=== PATIENT | female | born 1990 | race Asian ===

== ENCOUNTER 2019-05-13 02:44 | Inpatient (IN) ==
[2019-05-13] MEDS ORDERED: OXYTOCIN 30 UNITS/500 ML BAG IV PRN ×3 (05:22→20:20)
--- NOTE | 2019-05-13 05:22 | History & Physical Report ---
Date of Service May 13, 2019 Assessment & Plan (1) Term : 28yo G1 at 40.1 weeks GA. PROM 1. Fetus: Cat 1 2. Labor: PROM. Will start with SL cytotec 50mcg 3. Vitals: WNL 4. Eczema: Coninue home meds 5. GBS- 6. Rh+ History of Present Illness Primary Care Provider: NO PCP 28yo at 40.1 weeks GA. Present with LOF. No VB, or regular ctx. Good FM. complicated by severe eczema with large abd. lesion. Patient seen by dermatology. GBS- Allergies Allergy/AdvReac Type Severity Reaction Status Date / Time No Known Allergies Allergy Unverified 05/13/19 03:24 Home Medications Home Medications Medication Instructions Recorded Confirmed Type ferrous sulfate 325 mg PO DAILY 05/13/19 05/13/19 History hydrocortisone 1 applic TOPICAL BID PRN 05/13/19 05/13/19 History vit no.[id number] 1 tab PO DAILY 05/13/19 05/13/19 History [ Vitamin] Patient History Medical History Eczema On patients abdomen, bilateral arms, bilateral breast, and posterior knee bilaterally. Stomach ulcer history of [place] teeth removed Social History Preferred Language: ulike Communication Ability: Effective Manager Cable Required: No Beliefs That Will Affect Care: None marital status: Current Living Situation: Spouse Other Information That Helps Us Care for You: No Feels Safe at Home: Yes Safety Concerns: Feels Safe At This Time Smoking Status: Never smoker Do You Dip or Chew Tobacco: No Second Hand Exposure: No Tobacco Cessation Education Requested by Patient: No Hx Alcohol Use: No Hx Substance Use: No Physical Exam Gastrointestinal (Abdomen): normal bowel sounds, soft, nontender, no hepatosplenomegaly Percussion/Palpation: abdomen nontender, abdomen not rigid and + abdomen not soft Genitourinary: OB Exam Abdomen: + vertex and + irregular contractions Manual OB Exam: + cervical dilation fingertip, + cervical effacement 20%, + station -2 and + amniotic fluid clear OB Exam Monitor Tracing: + external FHT monitor used, + external uterine monitor used and + category I Results & Data Vital Signs (Past 12 Hours) Vital Signs Temp Pulse Resp BP 05/13/19 03:05 36.8 C 74 110/74 05/13/19 02:55 36.8 C 74 18 110/74
[2019-05-13] MEDS ORDERED: miSOPROStol 50 MCG TAB SL STA (05:32)
[2019-05-13 05:50] LABS: Hemoglobin 13.4 g/dL (12.0-16.0); Mean Corpuscular Volume 94.1 fL (80-100); Mean Platelet Volume 9.7 fL (7.4-10.4); Platelet Count 153 K/uL (130-400); RDW Coefficient of Variation 15.1 % (11.5-14.5); RDW Standard Deviation 51.5 fL (36.4-46.3); Red Blood Count 4.04 M/uL (4.2-5.4); White Blood Count 8.02 K/uL (4.8-10.8)
[2019-05-13 05:53] LABS: Mean Corpuscular Hgb Conc 35.3 g/dL (32-36)
[2019-05-13] MEDS: LACTATED RINGER'S 1,000 ML IV PRN ×2 (08:38→09:30)
[2019-05-13] MEDS ORDERED: ePHEDrine sulfate 50 MG/ML AMP ONE (08:42)
[2019-05-13] MEDS ORDERED: BUPIVACAINE 0.25% 30 ML VIAL ONE (08:42)
[2019-05-13] MEDS ORDERED: fentaNYL citrate 100 MCG/2 ML VIAL ONE (08:43)
[2019-05-13] MEDS ORDERED: fentaNYL 2MCG/ML ROPIV 1.25MG/ML 100 ML BAG EPI ONE (08:43)
[2019-05-13] MEDS ORDERED: MUPIROCIN 2% OINT 22 GM TUBE EXT SCH (09:00)
--- NOTE | 2019-05-13 10:08 | Anesthesiology Consultation ---
Date of Service May 13, 2019 Assessment & Plan Chart Review Chart Review: Acceptable Risk for Surgery and Patient NOT seen in Pre Admission Testing Consults Requested none History Height/Weight Height: 5 ft 2 in Weight: 63.503 kg Allergies Allergy/AdvReac Type Severity Reaction Status Date / Time No Known Allergies Allergy Unverified 05/13/19 03:24 Medications Home Medications Medication Instructions Recorded Confirmed Last Taken ferrous sulfate 325 mg PO DAILY 05/13/19 05/13/19 05/12/19 08:00 hydrocortisone 1 applic TOPICAL BID PRN 05/13/19 05/13/19 Unknown vit no.[id number] 1 tab PO DAILY 05/13/19 05/13/19 05/12/19 08:00 [ Vitamin] Active Medications Generic Name Dose Route Start Last Admin Trade Name Freq PRN Reason Stop Dose Admin Lactated Ringer's 1,000 mls @ 125 mls/hr 05/13/19 05:22 05/13/19 09:30 Lr IV 05/15/19 05:21 125 mls/hr .Q8H PRN Administration L&D Protocol Protocol Past Medical History Medical History Eczema On patients abdomen, bilateral arms, bilateral breast, and posterior knee bilaterally. Stomach ulcer history of [place] teeth removed Social History Smoking Status: Never smoker Do You Dip or Chew Tobacco: No Hx Alcohol Use: No Hx Substance Use: No substance use type: does not use Physical Exam Vital Signs Last Vital Signs Temp 37.1 C 05/13/19 08:57 Pulse 96 H 05/13/19 10:06 Resp 20 05/13/19 08:57 BP 111/70 05/13/19 10:06 Pulse Ox 94 05/13/19 10:05 Testing Laboratory Results 05/13/19 05:39
[2019-05-13] MEDS ORDERED: fentaNYL 2MCG/ML ROPIV 1.25MG/ML 100 ML BAG EPI PRN (10:10)
[2019-05-13] MEDS ORDERED: NALBUPHINE HCL INJ 10 MG/ML AMP IV PRN (10:10)
[2019-05-13] MEDS ORDERED: DiphenhydrAMINE HCL 50 MG/ML VIAL IV PRN (10:10)
[2019-05-13] MEDS ORDERED: ePHEDrine sulfate 50 MG/ML AMP IV PRN (10:10)
[2019-05-13] MEDS ORDERED: NALOXONE HCL 0.4 MG/1 ML VIAL/CARP IV PRN (10:10)
[2019-05-13] MEDS ORDERED: NALOXONE HCL 1 MG in SODIUM CHLORIDE 0.9% 1000ML 1,000 ML IV PRN (10:10)
--- NOTE | 2019-05-13 10:39 | Labor Progress Brief Note ---
Date of Service May 13, 2019 Subjective Reason For Note: Routine Evaluation Comfortable with Epidural Assessment & Plan (1) PROM (premature rupture of membranes): pitocin Present on Admission?: Yes Physical Exam Genitourinary: Manual OB Exam: + cervical dilation 2 cm, + cervical effacement 90%, + station -2 and + amniotic fluid clear OB Exam Monitor Tracing: + category I Results & Data Vital Signs (Past 12 Hours) Vital Signs Temp Pulse Resp BP Pulse Ox 05/13/19 10:32 59 L 103/66 96 05/13/19 10:27 65 94 05/13/19 10:22 78 97 05/13/19 10:17 69 96 05/13/19 10:12 81 107/65 97 05/13/19 10:10 72 112/70 05/13/19 10:08 77 113/72 05/13/19 10:07 73 95 05/13/19 10:06 96 H 111/70 05/13/19 10:05 75 94 05/13/19 10:04 69 103/60 05/13/19 10:02 79 102/64 94 05/13/19 10:00 74 104/67 05/13/19 09:59 79 94 05/13/19 09:58 79 100/63 05/13/19 09:57 97 H 95 05/13/19 09:56 83 101/64 05/13/19 09:54 71 107/64 05/13/19 09:53 73 108/65 94 05/13/19 09:52 70 96 05/13/19 09:47 88 97 05/13/19 09:42 83 97 05/13/19 09:37 87 97 05/13/19 09:32 75 97 05/13/19 09:27 68 95 05/13/19 09:22 81 97 05/13/19 09:17 83 97 05/13/19 09:12 77 96 05/13/19 09:07 79 96 05/13/19 09:02 76 98 05/13/19 08:57 37.1 C 75 20 103/70 94 05/13/19 07:08 37.0 C 71 20 102/63 05/13/19 05:27 36.7 C 18 05/13/19 03:05 36.8 C 74 110/74 05/13/19 02:55 36.8 C 74 18 110/74
[2019-05-13] MEDS: ONDANSETRON INJ 2 MG/ML 2 ML VIAL IV PRN ×2 (10:47→18:02)
--- NOTE | 2019-05-13 13:16 | Labor Progress Brief Note ---
Date of Service May 13, 2019 Subjective Comfortable with Epidural Assessment & Plan (1) PROM (premature rupture of membranes): pitocin Physical Exam Genitourinary: Manual OB Exam: + cervical dilation 3 cm, + cervical effacement 100%, + station -2 and + amniotic fluid clear OB Exam Monitor Tracing: + category I Results & Data Vital Signs (Past 12 Hours) Vital Signs Temp Pulse Resp BP Pulse Ox 05/13/19 13:12 68 97 05/13/19 13:07 61 97 05/13/19 13:02 63 97 05/13/19 13:00 61 96/59 L 05/13/19 12:57 75 98 05/13/19 12:52 61 98 05/13/19 12:47 72 98 05/13/19 12:46 59 L 95/59 L 05/13/19 12:42 59 L 97 05/13/19 12:37 65 98 05/13/19 12:32 62 98 05/13/19 12:29 64 101/64 05/13/19 12:27 109 H 97 05/13/19 12:22 61 97 05/13/19 12:17 58 L 98 05/13/19 12:15 69 97/59 L 05/13/19 12:12 67 99 05/13/19 12:07 58 L 96 05/13/19 12:02 56 L 96 05/13/19 11:59 63 100/65 05/13/19 11:57 60 97 05/13/19 11:52 61 99 05/13/19 11:47 65 99 05/13/19 11:45 63 96/58 L 05/13/19 11:42 66 98 05/13/19 11:37 67 98 05/13/19 11:32 84 98 05/13/19 11:30 73 20 92/61 L 05/13/19 11:27 56 L 96 05/13/19 11:22 91 H 98 05/13/19 11:17 82 97 05/13/19 11:16 57 L 95/63 L 05/13/19 11:15 68 93 05/13/19 11:12 57 L 95 05/13/19 11:07 59 L 95 05/13/19 11:02 60 97 05/13/19 11:01 54 L 20 98/57 L 05/13/19 10:57 62 93 05/13/19 10:56 62 94 05/13/19 10:52 54 L 96 05/13/19 10:49 75 92 05/13/19 10:47 99 H 98 05/13/19 10:44 56 L 97/60 L 94 05/13/19 10:42 102 H 100 05/13/19 10:37 62 98 05/13/19 10:32 59 L 20 103/66 96 05/13/19 10:27 65 94 05/13/19 10:22 78 97 05/13/19 10:17 69 96 05/13/19 10:12 81 107/65 97 05/13/19 10:10 72 112/70 05/13/19 10:08 77 113/72 05/13/19 10:07 73 95 05/13/19 10:06 96 H 20 111/70 05/13/19 10:05 75 94 05/13/19 10:04 69 103/60 05/13/19 10:02 79 102/64 94 05/13/19 10:00 74 104/67 05/13/19 09:59 79 94 05/13/19 09:58 79 100/63 05/13/19 09:57 97 H 95 05/13/19 09:56 83 101/64 05/13/19 09:54 71 107/64 05/13/19 09:53 73 108/65 94 05/13/19 09:52 70 96 05/13/19 09:47 88 97 05/13/19 09:42 83 97 05/13/19 09:37 87 97 05/13/19 09:32 75 97 05/13/19 09:27 68 95 05/13/19 09:22 81 97 05/13/19 09:17 83 97 05/13/19 09:12 77 96 05/13/19 09:07 79 96 05/13/19 09:02 76 98 05/13/19 08:57 37.1 C 75 20 103/70 94 05/13/19 07:08 37.0 C 71 20 102/63 05/13/19 05:27 36.7 C 18 05/13/19 03:05 36.8 C 74 110/74 05/13/19 02:55 36.8 C 74 18 110/74
--- NOTE | 2019-05-13 17:25 | Labor Progress Brief Note ---
Date of Service May 13, 2019 Subjective Comfortable with Epidural Assessment & Plan (1) PROM (premature rupture of membranes): pitocin Physical Exam Genitourinary: Manual OB Exam: + cervical dilation 10 cm (Per RN), + cervical effacement 100%, + station 0 and + amniotic fluid clear OB Exam Monitor Tracing: + category I Results & Data Vital Signs (Past 12 Hours) Vital Signs Temp Pulse Resp BP Pulse Ox 05/13/19 17:22 71 98 05/13/19 17:17 89 97 05/13/19 17:15 69 103/68 05/13/19 17:12 65 96 05/13/19 17:10 80 94 05/13/19 17:07 82 97 05/13/19 17:02 63 95 05/13/19 17:01 79 94 05/13/19 16:59 66 108/63 05/13/19 16:57 71 95 05/13/19 16:52 73 94 05/13/19 16:47 66 96 05/13/19 16:46 71 94 05/13/19 16:44 75 106/62 05/13/19 16:42 66 94 05/13/19 16:40 64 94 05/13/19 16:37 63 94 05/13/19 16:33 66 94 05/13/19 16:32 71 95 05/13/19 16:29 72 102/61 05/13/19 16:28 65 94 05/13/19 16:27 65 95 05/13/19 16:22 71 95 05/13/19 16:21 64 93 05/13/19 16:17 64 97 05/13/19 16:16 63 102/60 05/13/19 16:15 68 94 05/13/19 16:12 68 94 05/13/19 16:10 66 94 05/13/19 16:07 74 95 05/13/19 16:04 67 94 05/13/19 16:02 64 95 05/13/19 15:59 67 98/62 L 05/13/19 15:57 67 95 05/13/19 15:52 75 95 05/13/19 15:51 64 94 05/13/19 15:47 65 97 05/13/19 15:46 78 98/60 L 05/13/19 15:42 71 95 05/13/19 15:40 68 94 05/13/19 15:37 78 96 05/13/19 15:34 68 94 05/13/19 15:32 72 95 05/13/19 15:29 65 101/64 05/13/19 15:27 70 95 05/13/19 15:22 72 96 05/13/19 15:20 71 94 05/13/19 15:17 79 95 05/13/19 15:15 37.6 C H 68 20 105/61 05/13/19 15:12 77 96 05/13/19 15:07 71 96 05/13/19 15:06 72 94 05/13/19 15:02 71 95 05/13/19 15:00 70 20 110/66 05/13/19 14:57 73 97 05/13/19 14:54 74 94 05/13/19 14:52 70 97 05/13/19 14:47 72 96 05/13/19 14:45 70 109/68 94 05/13/19 14:42 71 97 05/13/19 14:37 69 94 05/13/19 14:32 70 94 05/13/19 14:31 65 101/61 05/13/19 14:27 67 95 05/13/19 14:22 72 93 05/13/19 14:17 79 94 05/13/19 14:16 70 100/64 05/13/19 14:12 75 96 05/13/19 14:07 78 96 05/13/19 14:02 75 95 05/13/19 14:00 73 104/66 05/13/19 13:57 79 98 05/13/19 13:54 72 94 05/13/19 13:52 67 96 05/13/19 13:47 77 95 05/13/19 13:44 78 104/68 05/13/19 13:42 82 96 05/13/19 13:37 73 98 05/13/19 13:32 63 97 05/13/19 13:31 69 103/65 05/13/19 13:27 68 97 05/13/19 13:22 74 98 05/13/19 13:17 66 96 05/13/19 13:14 83 89/55 L 05/13/19 13:12 68 97 05/13/19 13:07 61 97 05/13/19 13:02 63 97 05/13/19 13:00 37.3 C 61 20 96/59 L 05/13/19 12:57 75 98 05/13/19 12:52 61 98 05/13/19 12:47 72 98 05/13/19 12:46 59 L 95/59 L 05/13/19 12:42 59 L 97 05/13/19 12:37 65 98 05/13/19 12:32 62 98 05/13/19 12:29 64 101/64 05/13/19 12:27 109 H 97 05/13/19 12:22 61 97 05/13/19 12:17 58 L 98 05/13/19 12:15 69 97/59 L 05/13/19 12:12 67 99 05/13/19 12:07 58 L 96 05/13/19 12:02 56 L 96 05/13/19 11:59 63 100/65 05/13/19 11:57 60 97 05/13/19 11:52 61 99 05/13/19 11:47 65 99 05/13/19 11:45 63 96/58 L 05/13/19 11:42 66 98 05/13/19 11:37 67 98 05/13/19 11:32 84 98 05/13/19 11:30 73 20 92/61 L 05/13/19 11:27 56 L 96 05/13/19 11:22 91 H 98 05/13/19 11:17 82 97 05/13/19 11:16 57 L 95/63 L 05/13/19 11:15 68 93 05/13/19 11:12 57 L 95 05/13/19 11:07 59 L 95 05/13/19 11:02 60 97 05/13/19 11:01 54 L 20 98/57 L 05/13/19 10:57 62 93 05/13/19 10:56 62 94 05/13/19 10:52 54 L 96 05/13/19 10:49 75 92 05/13/19 10:47 99 H 98 05/13/19 10:44 56 L 97/60 L 94 05/13/19 10:42 102 H 100 05/13/19 10:37 62 98 05/13/19 10:32 59 L 20 103/66 96 05/13/19 10:27 65 94 05/13/19 10:22 78 97 05/13/19 10:17 69 96 05/13/19 10:12 81 107/65 97 05/13/19 10:10 72 112/70 05/13/19 10:08 77 113/72 05/13/19 10:07 73 95 05/13/19 10:06 96 H 20 111/70 05/13/19 10:05 75 94 05/13/19 10:04 69 103/60 05/13/19 10:02 79 102/64 94 05/13/19 10:00 74 104/67 05/13/19 09:59 79 94 05/13/19 09:58 79 100/63 05/13/19 09:57 97 H 95 05/13/19 09:56 83 101/64 05/13/19 09:54 71 107/64 05/13/19 09:53 73 108/65 94 05/13/19 09:52 70 96 05/13/19 09:47 88 97 05/13/19 09:42 83 97 05/13/19 09:37 87 97 05/13/19 09:32 75 97 05/13/19 09:27 68 95 05/13/19 09:22 81 97 05/13/19 09:17 83 97 05/13/19 09:12 77 96 05/13/19 09:07 79 96 05/13/19 09:02 76 98 05/13/19 08:57 37.1 C 75 20 103/70 94 05/13/19 07:08 37.0 C 71 20 102/63 05/13/19 05:27 36.7 C 18
--- NOTE | 2019-05-13 20:02 | Delivery Summary ---
Vaginal Delivery Summary Date of Service May 13, 2019 Vaginal Delivery Summary DIAGNOSES: 1. Abdi intrauterine at term gestation. 2. PROM/IOL. 3. Group B Streptococcus Neg. PROCEDURE: Spontaneous vaginal delivery and repair of 2nd degree laceration. SURGEON: Teagan Clarke MD. DIRECTOR OF LAND ACQUISITION: None. ESTIMATED BLOOD LOSS: 500 mL. COMPLICATIONS: None. PLACENTA: Spontaneous and intact with a 3-vessel cord. DISPOSITION: Stable to labor and delivery. DESCRIPTION: The patient pushed well and brought the head to in OA position. The infant's head was allowed to deliver with contraction force and no further active pushing, with the perineum protected during this time. The shoulders delivered easily with a maternal pushing effort. There was no nuchal cord. The Right shoulder was anterior. The shoulders and body delivered without any difficulty, and the infant was placed on the maternal abdomen. It was vigorous and moving all extremities, and making respiratory efforts. The cord was doubly clamped by the MD and then cut by the FOB. The placenta delivered spontaneously and was noted to be intact and with a 3VC. The cervix, vagina and perineum were examined and were found to have a second degree lac which was repaired in the usual fashion with vicryl suture including a crown stitch to rebuild the perineal body and followed by a rectal exam to r/o injury or suture there. The fundus was firm and lochia minimal immediately after delivery.
[2019-05-13] MEDS ORDERED: ACETAMINOPHEN 325 MG TAB PO PRN (20:20)
[2019-05-13] MEDS ORDERED: OXYCODONE/ACETAMINOPHEN 5mg/325mg TAB PO PRN (20:20)
[2019-05-13] MEDS ORDERED: DIPHTHERIA/TETANUS/PERTUSSIS 0.5 ML SYR/VIAL IM ONE (20:20)
[2019-05-13] MEDS ORDERED: BENZOCAINE 20% AER SPR 82.5 GM CAN EXT PRN (20:20)
[2019-05-13] MEDS ORDERED: SUPERCREAM 0.870% 15 GM JAR EXT PRN (20:20)
[2019-05-13] MEDS ORDERED: HYDROCORTISONE ACETATE 25 MG SUPP PR PRN (20:20)
[2019-05-13] MEDS ORDERED: LACTATED RINGER'S 1,000 ML IV SCH (20:20)
--- NOTE | 2019-05-13 22:17 | Anesthesia Procedure Note ---
Date of Service May 13, 2019 Anesthesia Post Epidural Note Vital Signs Vital Signs: Temp Pulse Resp BP Pulse Ox 37.1 C 85 18 102/64 96 05/13/19 20:00 05/13/19 22:03 05/13/19 22:00 05/13/19 22:03 05/13/19 19:37 Notes Mental Status: alert / awake / arousable Nausea / Vomiting: adequately controlled Pain: adequately controlled Airway Patency, RR, SpO2: stable & adequate BP & HR: stable & adequate Hydration State: stable & adequate Neuraxial Anesthesia: was administered and sensory block is resolving Anesthetic Complications: no major complications apparent and Pt Satisfied with anesthetic care Epidural: Removed without complications and With tip intact
[2019-05-13] MEDS: IBUPROFEN 600 MG TAB PO PRN (23:41)
[2019-05-14] MEDS: IBUPROFEN 600 MG TAB PO PRN ×2 (04:30→19:52)
[2019-05-14 06:44] LABS: Hematocrit (blood only) 29.8 % (37-47); Hemoglobin 10.3 g/dL (12.0-16.0); Mean Corpuscular Hgb Conc 34.6 g/dL (32-36); Mean Corpuscular Volume 92.8 fL (80-100); Platelet Count 128 K/uL (130-400); RDW Standard Deviation 50.8 fL (36.4-46.3); Red Blood Count 3.21 M/uL (4.2-5.4); White Blood Count 14.91 K/uL (4.8-10.8)
--- NOTE | 2019-05-14 07:13 | Obstetrical Progress Note ---
Date of Service May 14, 2019 Assessment & Plan (1) PROM (premature rupture of membranes): Recovering well PPD#1 from vaginal delivery. Routine care and plan discharge tomorrow AM. Present on Admission?: Yes Subjective Ambulation: ambulating normally Voiding: no voiding problems Passing Gas:: Yes Diet Tolerance:: regular diet Lochia:: Small Feeding Type:: breast feeding Physical Exam Constitutional WD/WN, vitals as above Eyes PERRL, conjunctivae normal, anicteric sclerae Neck normal visual inspection Respiratory normal respiratory effort and able to speak in complete sentences; no respiratory distress and no labored breathing Cardiovascular Rate/Rhythm: regular rate and regular rhythm Extremities: no edema Chest (Breasts) Chest: normal inspection of chest Gastrointestinal (Abdomen) Inspection/Auscultation: abdomen normal to inspection Soft, postgravid Psychiatric A+Ox3, euthymic affect Genitourinary OB Exam Abdomen: + fundal height Fundus: + firm and + relation to umbilicus (fundus just below umbilicus); not tender Results & Data Vital Signs (Past 12 Hours) Vital Signs Temp Pulse Pulse Resp BP BP Pulse Ox 05/14/19 05:09 37.1 C 69 18 89/46 L 97 05/13/19 23:00 37.1 C 73 18 100/68 98 05/13/19 22:39 83 96/60 L 05/13/19 22:25 65 97/59 L 05/13/19 22:20 60 100/54 L 05/13/19 22:03 85 102/64 05/13/19 22:00 18 05/13/19 21:33 88 105/61 05/13/19 21:00 18 05/13/19 20:59 73 101/60 05/13/19 20:45 71 18 93/54 L 05/13/19 20:30 68 18 96/55 L 05/13/19 20:15 74 18 101/60 05/13/19 20:00 37.1 C 104 H 18 98/57 L 05/13/19 19:45 72 105/58 L 05/13/19 19:37 65 96 05/13/19 19:34 80 82 L 05/13/19 19:32 78 96 05/13/19 19:31 18 05/13/19 19:30 94 H 116/59 L 05/13/19 19:27 84 93 05/13/19 19:26 83 83 L 05/13/19 19:22 89 96 05/13/19 19:21 86 83 L 05/13/19 19:17 73 96 05/13/19 19:15 68 102/55 L 05/13/19 19:14 87 86 L
--- NOTE | 2019-05-14 07:53 | Obstetrical Progress Note ---
Date of Service <Dian Andrews MD - Last Filed: 05/14/19 07:53> May 14, 2019 Assessment & Plan <Dian Andrews MD - Last Filed: 05/14/19 07:53> (1) Eczema: (2) PROM (premature rupture of membranes): Subjective <Dian Andrews MD - Last Filed: 05/14/19 07:53> Ambulation: limited ambulation Passing Gas:: Yes Diet Tolerance:: regular diet Lochia:: Small Feeding Type:: breast feeding Current Pain Level(1-10): 3 PPD 1 PROM Constitutional: + weakness; no fever and no chills Respiratory: no cough Cardiovascular: no chest pain, no palpitations, no edema and no calf pain Breast: + breast pain Gastrointestinal: no abdominal pain, no nausea, no cramping, no constipation and no diarrhea/loose stools Genitourinary (female): no dysuria, no difficulty urinating and no urinary frequency Musculoskeletal: no body aches Integumentary: + rash (eczematous lesion on abdomen has become painful) Physical Exam <Dian Andrews MD - Last Filed: 05/14/19 07:53> Constitutional well developed, well nourished and + thin Respiratory no cough Auscultation: no crackles, no rales, no rhonchi and no wheezes Cardiovascular Rate/Rhythm: + abnormal rate and + abnormal rhythm Extremities: no calf tenderness, no pedal edema and no edema Gastrointestinal (Abdomen) Percussion/Palpation: + abdomen tender tender to palpation around eczematous wound covering and left side of abdomen. Describes pain as in the skin, not deeper "uterine" pain. Skin + rash and + wound Results & Data <Dian Andrews MD - Last Filed: 05/14/19 07:53> Vital Signs (Past 12 Hours) Vital Signs Temp Pulse Pulse Resp BP BP Pulse Ox 05/14/19 05:09 37.1 C 69 18 89/46 L 97 05/13/19 23:00 37.1 C 73 18 100/68 98 05/13/19 22:39 83 96/60 L 05/13/19 22:25 65 97/59 L 05/13/19 22:20 60 100/54 L 05/13/19 22:03 85 102/64 05/13/19 22:00 18 05/13/19 21:33 88 105/61 05/13/19 21:00 18 05/13/19 20:59 73 101/60 05/13/19 20:45 71 18 93/54 L 05/13/19 20:30 68 18 96/55 L 05/13/19 20:15 74 18 101/60 05/13/19 20:00 37.1 C 104 H 18 98/57 L 05/13/19 19:45 72 105/58 L <Teagan Clarke MD - Last Filed: 05/14/19 08:38> Co-Signing Physician Notes I have reviewed the resident's note and examined the patient myself, and agree with the note above.
[2019-05-14] MEDS: PRENATAL VITAMIN 1 TAB PO SCH (08:24)
[2019-05-14] MEDS: DOCUSATE SODIUM 100 MG CAP PO SCH ×2 (08:24→19:51)
[2019-05-14] MEDS: HYDROCORTISONE 2.5% CR 30 GM TUBE EXT PRN (13:36)
[2019-05-15 06:48] LABS: Hematocrit (blood only) 29.6 % (37-47); Hemoglobin 10.3 g/dL (12.0-16.0)
--- NOTE | 2019-05-15 07:16 | Obstetrical Progress Note ---
Date of Service <Dian Andrews MD - Last Filed: 05/15/19 07:18> May 15, 2019 Assessment & Plan <Dian Andrews MD - Last Filed: 05/15/19 07:18> (1) Eczema: (2) PROM (premature rupture of membranes): Subjective <Dian Andrews MD - Last Filed: 05/15/19 07:18> Ambulation: ambulating normally Voiding: no voiding problems Passing Gas:: Yes Lochia:: Small Feeding Type:: breast feeding Current Pain Level(1-10): 1 Constitutional: no fever and no chills Respiratory: no cough and no dyspnea Cardiovascular: no edema and no calf pain Breast: no breast pain Gastrointestinal: no abdominal pain, no nausea, no vomiting, no change in stools, no constipation and no diarrhea/loose stools Genitourinary (female): no dysuria and no difficulty urinating Integumentary: + rash (eczematous lesion on abdomen has become painful) Physical Exam <Dian Andrews MD - Last Filed: 05/15/19 07:18> Constitutional well developed, well nourished and + thin Respiratory no cough Auscultation: no crackles, no rales, no rhonchi and no wheezes Cardiovascular Rate/Rhythm: + abnormal rate and + abnormal rhythm Extremities: no calf tenderness, no pedal edema and no edema Gastrointestinal (Abdomen) Percussion/Palpation: + abdomen tender Skin + rash and + wound Genitourinary OB Exam Abdomen: + fundal height Fundus: + firm and + relation to umbilicus (inferior to umbilicus); not tender Results & Data <Dian Andrews MD - Last Filed: 05/15/19 07:18> Vital Signs (Past 12 Hours) Vital Signs Temp Pulse Resp BP BP Pulse Ox 05/14/19 23:25 36.4 C L 67 16 98/62 L 98 05/14/19 19:17 37.1 C 101 H 18 96/63 L 98 <Travis Mckeon MD, FACOG - Last Filed: 05/15/19 07:27> Co-Signing Physician Notes Resident Physician Supervision Note: I interviewed and examined the patient. Discussed with Dr. Andrews and agree with findings and plan as documented in the note. Any exceptions or clarifications are listed here: [None] Documented By: Travis Mckeon MD, FACOG
[2019-05-15] MEDS: DOCUSATE SODIUM 100 MG CAP PO SCH (08:49)
[2019-05-15] MEDS: PRENATAL VITAMIN 1 TAB PO SCH (08:49)
[2019-05-15] MEDS: HYDROCORTISONE 2.5% CR 30 GM TUBE EXT PRN (08:50)
== END 2019-05-15 18:40 | disposition home or self-care (01) | DRG 807 ==
LOC: OPB 02:44 → 4S1 02:48 → 4S2 23:13